=== PATIENT | male | born 1965 | race Caucasian/White ===

== ENCOUNTER 2017-05-18 14:52 | Emergency (ER) | payer OTHER ==
[~2017-05-18] VITALS: Ht 177.8 cm; Wt 81.5 kg
[2017-05-18] MEDS ORDERED: [UNRECOGNIZED DRUG - REMARK] PO (15:02)
[2017-05-18] MEDS ORDERED: CYCLOBENZAPRINE HCL 10 MG TABLET PO ONE (15:15)
[2017-05-18] MEDS ORDERED: KETOROLAC TROMETHAMINE 60 MG/2 ML VIAL IM ONE (15:15)
[2017-05-18 17:41] VITALS: BP 146/99
== END 2017-05-18 18:01 | disposition home or self-care (01) ==
LOC: EMS 14:54
DX: S29.012A Strain of muscle and tendon of back wall of thorax, initial encounter (principal); M79.1 Myalgia; R07.89 Other chest pain; I10 Essential (primary) hypertension; X50.9XXA Other and unspecified overexertion or strenuous movements or postures, initial encounter; Y93.89 Activity, other specified; Y92.9 Unspecified place or not applicable; Y99.9 Unspecified external cause status
CPT/HCPCS: 93005; 96372; 99283; J1885

== ENCOUNTER 2018-04-25 22:07 | Emergency (ER) | payer SELFPAY ==
[~2018-04-25] VITALS: Ht 177.8 cm; Wt 82.3 kg
[~2018-04-25 22:07] MED LIST: [UNRECOGNIZED DRUG - REMARK] PO
[2018-04-26] MEDS ORDERED: PROPARACAINE HCL 0.5% 15 ML OPHTHALMIC SOLUTION OU ONE (01:15)
[2018-04-26] MEDS ORDERED: PROPARACAINE/FLUORESCEIN SOD 0.5-0.25% 0.5 ML OPHTHALMIC SOLUTION ONE (01:23)
[2018-04-26] MEDS ORDERED: PROPARACAINE/FLUORESCEIN SOD 0.5-0.25% 0.5 ML OPHTHALMIC SOLUTION OU ONE (01:45)
[2018-04-26 01:58] VITALS: BP 141/83
== END 2018-04-26 02:15 | disposition home or self-care (01) ==
LOC: EMS 22:08
DX: H11.003 Unspecified pterygium of eye, bilateral (principal); I10 Essential (primary) hypertension
CPT/HCPCS: 99283; Z7610

== ENCOUNTER 2020-02-29 12:06 | Emergency (ER) | payer OTHER ==
[~2020-02-29] VITALS: Ht 177.8 cm; Wt 91.1 kg
[2020-02-29] MEDS ORDERED: SODIUM CHLORIDE 0.9% 1,000 ML IV ONE (12:45)
[2020-02-29] MEDS ORDERED: FAMOTIDINE 10 MG/ML 2 ML VIAL IVP ONE (12:45)
[2020-02-29] MEDS ORDERED: MethylPREDNISolone SOD SUCC 125 MG/2 ML VIAL IVP ONE (12:45)
[2020-02-29 15:27] VITALS: BP 135/89
== END 2020-02-29 16:38 | disposition home or self-care (01) ==
LOC: EDUNIT# 12:06 → EMS 12:15
DX: T63.441A Toxic effect of venom of bees, accidental (unintentional), initial encounter (principal); T78.2XXA Anaphylactic shock, unspecified, initial encounter; X58.XXXA Exposure to other specified factors, initial encounter
CPT/HCPCS: 96374; 96375; 99284; J2930; J3490; J7030